=== PATIENT | female | born 1995 | race Caucasian/White ===

== ENCOUNTER → 2021-12-20 | Outpatient (CLI) | payer BC ==
[2021-12-20 10:25] LABS: Basophils # (auto) 0 10 ^3/uL (0-0.2); Basophils % (auto) 0.6 % (0.0-2.0); Eosinophils # (auto) 0 10 ^3/uL (0-0.8); Eosinophils % (auto) 0.6 % (0.0-7.0); Hematocrit 40.9 % (36.0-46.0); Hemoglobin 13.6 g/dL (12.2-16.2); Lymphocytes # (auto) 1.4 10 ^3/uL (0.4-5.4); Mean Corpuscular Hemoglobin 31.6 pg (28.0-32.0); Mean Corpuscular Hgb Conc. 33.1 g/dL (32.0-36.0); Mean Corpuscular Volume 95.5 fL (80.0-100.0); Monocytes # (auto) 0.6 10 ^3/uL (0-1.3); Monocytes % (auto) 7.7 % (0.0-12.0); Neutrophils # (auto) 5.8 10 ^3/uL (1.6-8.6); Neutrophils % (auto) 73.1 % (37.0-80.0); Red Blood Cells 4.28 10^6/uL (4.0-5.20); Red Cell Distribution Width 11.7 % (11.8-14.3)
[2021-12-21 07:06] LABS: RPR Non Reactive (Non Reactive)
== END | disposition home or self-care (01) ==
LOC: LAB 09:23
PROVIDERS: ATTEND Obstetrics & Gynecology
DX: Z34.00 Encounter for supervision of normal first pregnancy, unspecified trimester (principal); N39.0 Urinary tract infection, site not specified; Z31.430 Encounter of female for testing for genetic disease carrier status for procreative management; Z36.0 Encounter for antenatal screening for chromosomal anomalies
CPT/HCPCS: 36415; 83036; 84112; 84702; 85025; 86592; 86703; 86762; 86850; 86900; 86901; 87086; 87340

== ENCOUNTER → 2022-04-19 | Outpatient (CLI) | payer BC ==
[2022-04-19 09:12] LABS: Basophils # (auto) 0 10 ^3/uL (0-0.2); Basophils % (auto) 0.2 % (0.0-2.0); Eosinophils # (auto) 0.1 10 ^3/uL (0-0.8); Eosinophils % (auto) 0.8 % (0.0-7.0); Hematocrit 39.2 % (36.0-46.0); Hemoglobin 13.2 g/dL (12.2-16.2); Lymphocytes # (auto) 1.4 10 ^3/uL (0.4-5.4); Lymphocytes % (auto) 14.6 % (10.0-50.0); Mean Corpuscular Hemoglobin 32.9 pg (28.0-32.0); Mean Corpuscular Hgb Conc. 33.6 g/dL (32.0-36.0); Mean Corpuscular Volume 97.9 fL (80.0-100.0); Monocytes # (auto) 0.7 10 ^3/uL (0-1.3); Monocytes % (auto) 7.7 % (0.0-12.0); Neutrophils # (auto) 7.3 10 ^3/uL (1.6-8.6); Neutrophils % (auto) 76.7 % (37.0-80.0); Nucleated Red Blood Cells % 0.1 %; Red Cell Distribution Width 12.2 % (11.8-14.3); White Blood Cell 9.6 10^3/uL (4.4-10.8)
== END | disposition home or self-care (01) ==
LOC: LAB 07:15
PROVIDERS: ATTEND Obstetrics & Gynecology
DX: O99.810 Abnormal glucose complicating pregnancy (principal); Z3A.00 Weeks of gestation of pregnancy not specified
CPT/HCPCS: 36415; 82951; 85025

== ENCOUNTER → 2022-06-07 | Outpatient (CLI) | payer BC ==
[2022-06-07 08:32] LABS: Basophils # (auto) 0 10 ^3/uL (0-0.2); Basophils % (auto) 0.1 % (0.0-2.0); Eosinophils # (auto) 0 10 ^3/uL (0-0.8); Eosinophils % (auto) 0.4 % (0.0-7.0); Hematocrit 39.4 % (36.0-46.0); Hemoglobin 13.2 g/dL (12.2-16.2); Lymphocytes # (auto) 1.2 10 ^3/uL (0.4-5.4); Lymphocytes % (auto) 10.3 % (10.0-50.0); Mean Corpuscular Hemoglobin 33.2 pg (28.0-32.0); Mean Corpuscular Hgb Conc. 33.6 g/dL (32.0-36.0); Mean Corpuscular Volume 98.6 fL (80.0-100.0); Monocytes # (auto) 0.7 10 ^3/uL (0-1.3); Monocytes % (auto) 6.3 % (0.0-12.0); Neutrophils # (auto) 9.5 10 ^3/uL (1.6-8.6); Neutrophils % (auto) 82.9 % (37.0-80.0); Red Blood Cells 3.99 10^6/uL (4.0-5.20); Red Cell Distribution Width 12.7 % (11.8-14.3); White Blood Cell 11.4 10^3/uL (4.4-10.8)
[2022-06-08 07:06] LABS: RPR Non Reactive (Non Reactive)
== END | disposition home or self-care (01) ==
LOC: LAB 08:22
PROVIDERS: ATTEND Obstetrics & Gynecology
DX: Z34.00 Encounter for supervision of normal first pregnancy, unspecified trimester (principal); Z3A.00 Weeks of gestation of pregnancy not specified
CPT/HCPCS: 36415; 85025; 86592

== ENCOUNTER 2022-07-13 09:37 | Observation (INO) | payer BC ==
[~2022-07-13] VITALS: Ht 157.5 cm; Wt 155.0 kg
[2022-07-13] MEDS ORDERED: PREN-96 PO (14:14)
== END 2022-07-13 14:50 | disposition home or self-care (01) ==
LOC: LDRP 13:10 → UNDOADMOB 13:10 → LDRP 13:11 → UNDOADMOB 13:11 → LDRP 13:39 → UNDODISOB 14:50
PROVIDERS: ADMIT Obstetrics & Gynecology; ATTEND Obstetrics & Gynecology
DX: O62.9 Abnormality of forces of labor, unspecified (principal); Z3A.40 40 weeks gestation of pregnancy
CPT/HCPCS: 59025; 76818; 81002; 94760; G0378

== ENCOUNTER 2022-07-15 10:03 | Observation (INO) | payer BC ==
[~2022-07-15 10:03] MED LIST: PREN-96 PO
== END 2022-07-15 12:42 | disposition home or self-care (01) ==
LOC: LDRP 10:03
PROVIDERS: ADMIT Obstetrics & Gynecology; ATTEND Obstetrics & Gynecology
DX: O48.0 Post-term pregnancy (principal); O62.9 Abnormality of forces of labor, unspecified; Z3A.40 40 weeks gestation of pregnancy
CPT/HCPCS: 59025; 76818; 81002; G0378

== ENCOUNTER 2022-07-17 09:50 | Inpatient (IN) | payer BC ==
[~2022-07-17] VITALS: Ht 157.5 cm; Wt 70.3 kg
[2022-07-17] MEDS ORDERED: DERMOPLAST 60ML BOTTLE TOP PRN (15:45)
[2022-07-17] MEDS ORDERED: PHISODERM TOP SOLN 240ML BTL TOP PRN (15:45)
[2022-07-17] MEDS ORDERED: PROMETHAZINE HCL 25 MG/ML 1ML IV PRN (15:45)
[2022-07-17] MEDS ORDERED: LIDOCAINE 2%HCL (LOCAL ANESTH.) INJ 20ML MDV IJ PRN (15:45)
[2022-07-17] MEDS ORDERED: WITCH HAZEL-GLYCERIN PAD TOP PRN (15:45)
[2022-07-17] MEDS ORDERED: PENICILLIN G POT 5MIL/D5 50ML 50 ML IV ONE (15:45)
[2022-07-17] MEDS ORDERED: BUTORPHANOL TARTRATE 2 MG/1 ML VIAL IV PRN ×2 (15:45)
[2022-07-17] MEDS ORDERED: LACT. RINGERS/OXYTOCIN 20UNITS 500 ML IV ONE ×2 (16:00→16:30)
[2022-07-17 16:31] LABS: Basophils # (auto) 0.1 10 ^3/uL (0-0.2); Basophils % (auto) 0.5 % (0.0-2.0); Eosinophils # (auto) 0 10 ^3/uL (0-0.8); Eosinophils % (auto) 0.3 % (0.0-7.0); Hematocrit 38.5 % (36.0-46.0); Hemoglobin 13.1 g/dL (12.2-16.2); Lymphocytes # (auto) 1.4 10 ^3/uL (0.4-5.4); Lymphocytes % (auto) 13.5 % (10.0-50.0); Mean Corpuscular Hemoglobin 33.7 pg (28.0-32.0); Mean Corpuscular Hgb Conc. 34.1 g/dL (32.0-36.0); Mean Corpuscular Volume 98.9 fL (80.0-100.0); Monocytes # (auto) 0.8 10 ^3/uL (0-1.3); Monocytes % (auto) 7.9 % (0.0-12.0); Neutrophils # (auto) 8.3 10 ^3/uL (1.6-8.6); Neutrophils % (auto) 77.8 % (37.0-80.0); Red Blood Cells 3.89 10^6/uL (4.0-5.20); White Blood Cell 10.7 10^3/uL (4.4-10.8)
[2022-07-17 16:49] LABS: Albumin 2.7 g/dL (3.4-5.0); Calcium 8.9 mg/dL (8.5-10.1); Potassium 3.9 mmol/L (3.5-5.1)
[2022-07-17 16:53] LABS: BUN/Creatinine Ratio 18.8 (10.0-20.0); Bilirubin, Total 0.1 mg/dL (0.2-1.0); Total Protein 6.2 g/dL (6.4-8.2)
[2022-07-17 16:56] LABS: INR 0.9 (0.9-1.15); Partial Thromboplastin Time 29.8 sec (24.6-33.4)
[2022-07-17] MEDS ORDERED: CARBOPROST TROMETHAMINE 250 MCG/1ML VIAL IM PRN (18:15)
[2022-07-17] MEDS ORDERED: METHYLERGONOVINE MALEATE 0.2 MG/ML AMP IM PRN (18:15)
[2022-07-17] MEDS ORDERED: miSOPROStol 100 mcg TAB SL PRN (18:15)
[2022-07-17] MEDS ORDERED: PENICILLIN G POTASSIUM 2,500,000 UNITS in D5W 5% 50 ML IV SCH (19:45)
[2022-07-17 20:27] LABS: Alcohol, Urine < 3.0 mg/dL (0-10); Amphetamine Screen, Urine NEGATIVE (NEGATIVE); Barbiturate Scree,Urine NEGATIVE (NEGATIVE); Benzodiazephine Screen, Urine NEGATIVE (NEGATIVE); Cannabinoid Screen, Urine NEGATIVE (NEGATIVE); Cocaine Screen, Urine NEGATIVE (NEGATIVE); Opiate Scree,Urine NEGATIVE (NEGATIVE); Phencyclidine Screen, Urine NEGATIVE (NEGATIVE)
[2022-07-17 20:32] LABS: Urine Bacteria FEW /hpf (None Seen); Urine Blood Negative /uL (Negative); Urine Specific Gravity 1.004 (1.001-1.035); Urine WBC 1 /hpf (0 - 5)
[2022-07-17] MEDS: PENICILLIN G POTASSIUM 2,500,000 UNITS in D5W 5% 50 ML IV SCH (21:45)
[2022-07-17] MEDS ORDERED: DIPHENOXYLATE W/ATROPINE 2.5 MG TAB PO SCH (22:00)
[2022-07-18] MEDS: LACTATED RINGER'S 1,000 ML IV SCH ×2 (02:14→16:53)
[2022-07-18] MEDS: PENICILLIN G POTASSIUM 2,500,000 UNITS in D5W 5% 50 ML IV SCH ×5 (02:18→19:26)
[2022-07-18] MEDS ORDERED: miSOPROStol 50 MCG per PRE-CUT 1/2 TAB PO PRN (02:42)
[2022-07-18] MEDS ORDERED: TERBUTALINE SULFATE 1 MG/ML 1ML VIAL SC ONE (04:30)
[2022-07-18] MEDS ORDERED: LACT. RINGERS/OXYTOCIN 20UNITS 500 ML IV ONE ×2 (08:00→08:30)
[2022-07-18] MEDS ORDERED: LACT. RINGERS/OXYTOCIN 20UNITS 1,000 ML IV SCH (08:00)
[2022-07-18 09:07] LABS: RPR Non Reactive (Non Reactive)
[2022-07-18] MEDS ORDERED: LACTATED RINGER'S 1,000 ML IV ONE (16:00)
[2022-07-18] MEDS ORDERED: ePHEDrine SULFATE 50 MG/ML AMP IV ONE (16:00)
[2022-07-18] MEDS ORDERED: ROPIVACAINE HCL 200 ML EPI SCH (16:00)
[2022-07-18] MEDS ORDERED: fentaNYL CITRATE 100 MCG/2 ML VL IV ONE (16:00)
[2022-07-18] MEDS ORDERED: NALOXONE HCL 0.4 MG/ML VIAL IV ONE (16:00)
[2022-07-18] MEDS ORDERED: ROPIVACAINE HCL 200 ML ONE (16:04)
[2022-07-18] MEDS ORDERED: fentaNYL CITRATE 100 MCG/2 ML VL ONE (16:04)
[2022-07-18] MEDS ORDERED: Lidocaine W-Epinephrine 1.5%-1:200,000 INJ 10ml Vial ONE (16:10)
[2022-07-18] MEDS ORDERED: FAMOTIDINE (10MG/ML) 2ML VL IV ONE (17:07)
[2022-07-18] MEDS ORDERED: FAMOTIDINE (10MG/ML) 2ML VL IV PRN (17:15)
[2022-07-18] MEDS ORDERED: OXYTOCIN 10UNIT/ML 1ML VIAL IM ONE (22:30)
[2022-07-18] MEDS ORDERED: OXYTOCIN 10UNIT/ML 1ML VIAL ONE (22:32)
[2022-07-19] MEDS ORDERED: ACETAMINOPHEN 325 MG TAB PO PRN (00:15)
[2022-07-19] MEDS ORDERED: CARBOPROST TROMETHAMINE 250 MCG/1ML VIAL IM PRN (00:15)
[2022-07-19 01:31] LABS: Basophils # (auto) 0.1 10 ^3/uL (0-0.2); Eosinophils # (auto) 0 10 ^3/uL (0-0.8); Hematocrit 36.2 % (36.0-46.0); Lymphocytes # (auto) 0.9 10 ^3/uL (0.4-5.4)
[2022-07-19 01:33] LABS: Basophils % (auto) 0.5 % (0.0-2.0); Hemoglobin 12.6 g/dL (12.2-16.2); Lymphocytes % (auto) 4.8 % (10.0-50.0); Mean Corpuscular Hemoglobin 33.9 pg (28.0-32.0); Mean Corpuscular Hgb Conc. 34.8 g/dL (32.0-36.0); Mean Corpuscular Volume 97.5 fL (80.0-100.0); Monocytes # (auto) 1.2 10 ^3/uL (0-1.3); Monocytes % (auto) 6.3 % (0.0-12.0); Neutrophils # (auto) 16.4 10 ^3/uL (1.6-8.6); Neutrophils % (auto) 88.4 % (37.0-80.0); Red Blood Cells 3.72 10^6/uL (4.0-5.20); White Blood Cell 18.5 10^3/uL (4.4-10.8)
[2022-07-19] MEDS: IBUPROFEN 600 MG TAB PO PRN ×3 (03:27→23:15)
[2022-07-19] MEDS: LACTATED RINGER'S 1,000 ML IV SCH (05:22)
[2022-07-19 07:00] VITALS: BP 117/76
[2022-07-19] MEDS ORDERED: TERBUTALINE SULFATE 1 MG/ML 1ML VIAL SC PRN (07:30)
[2022-07-19] MEDS ORDERED: LACT. RINGERS/OXYTOCIN 20UNITS 500 ML IV ONE ×2 (07:30→08:00)
[2022-07-19] MEDS ORDERED: LACT. RINGERS/OXYTOCIN 20UNITS 1,000 ML IV SCH (07:30)
[2022-07-19 11:00] VITALS: BP 100/65
[2022-07-19] MEDS ORDERED: PREN-96 PO (14:23)
[2022-07-19] MEDS ORDERED: HYDR-4902 PO (14:23)
[2022-07-19] MEDS ORDERED: IBU600T PO (14:23)
[2022-07-19] MEDS ORDERED: DOCU-94 PO (14:23)
[2022-07-19] MEDS ORDERED: ACET325T10 PO (14:23)
[2022-07-19] MEDS ORDERED: DOCUSATE SOD 100 MG CAP PO PRN (14:30)
[2022-07-19 14:55] VITALS: BP 115/73
[2022-07-19 18:56] VITALS: BP 104/69
[2022-07-19 23:09] VITALS: BP 110/73
[2022-07-19 23:39] LABS: Basophils # (auto) 0 10 ^3/uL (0-0.2); Lymphocytes # (auto) 1.3 10 ^3/uL (0.4-5.4); Monocytes # (auto) 0.9 10 ^3/uL (0-1.3); Nucleated Red Blood Cells % 0.1 %
[2022-07-19 23:40] LABS: Basophils % (auto) 0.3 % (0.0-2.0); Eosinophils # (auto) 0.1 10 ^3/uL (0-0.8); Eosinophils % (auto) 0.7 % (0.0-7.0); Hematocrit 34.3 % (36.0-46.0); Hemoglobin 11.9 g/dL (12.2-16.2); Lymphocytes % (auto) 12.5 % (10.0-50.0); Mean Corpuscular Hemoglobin 34.7 pg (28.0-32.0); Mean Corpuscular Hgb Conc. 34.8 g/dL (32.0-36.0); Mean Corpuscular Volume 99.8 fL (80.0-100.0); Monocytes % (auto) 8.9 % (0.0-12.0); Neutrophils # (auto) 7.9 10 ^3/uL (1.6-8.6); Neutrophils % (auto) 77.6 % (37.0-80.0); Red Blood Cells 3.44 10^6/uL (4.0-5.20); White Blood Cell 10.1 10^3/uL (4.4-10.8)
[2022-07-20 02:45] VITALS: BP 96/65
[2022-07-20 07:00] VITALS: BP 100/63
[2022-07-20] MEDS: IBUPROFEN 600 MG TAB PO PRN (07:29)
[2022-07-20 11:20] VITALS: BP 117/66
[2022-07-20 12:12] VITALS: BP 117/66
== END 2022-07-20 12:12 | disposition home or self-care (01) | DRG 807 ==
LOC: LDRP 14:09 → UNDOADMOB 14:09 → OBSVTOIN 15:40 → INTOOBSV 15:40 → LDRP 15:47 → OBSVTOIN 15:47 → LDRP 07-19 11:03
PROVIDERS: ADMIT Obstetrics & Gynecology; ATTEND Obstetrics & Gynecology
PROC: 10E0XZZ Delivery of Products of Conception, External Approach (ICD-10-PCS; principal; 2022-07-18)
PROC: 0HQ9XZZ Repair Perineum Skin, External Approach (ICD-10-PCS; 2022-07-18)
PROC: 3E0R3BZ Introduction of Anesthetic Agent into Spinal Canal, Percutaneous Approach (ICD-10-PCS; 2022-07-18)
PROC: 00HU33Z Insertion of Infusion Device into Spinal Canal, Percutaneous Approach (ICD-10-PCS; 2022-07-18)
DX: O48.0 Post-term pregnancy (principal); Z37.0 Single live birth; O99.824 Streptococcus B carrier state complicating childbirth; Z20.822 Contact with and (suspected) exposure to COVID-19; O69.81X0 Labor and delivery complicated by cord around neck, without compression, not applicable or unspecified; O70.0 First degree perineal laceration during delivery; Z3A.40 40 weeks gestation of pregnancy
CPT/HCPCS: 36415; 59025; 59409; 62282; 80053; 80307; 81001; 81002; 84112; 85025; 85610; 85730; 86592; 86850; 86900; 86901; 87426; 94760; 94762; 96360; 96361; 96365; 96366; 96372; G0378; J2540; J2590; J3490; J7060

== ENCOUNTER → 2024-01-24 | Outpatient (CLI) | payer BC ==
[~2024-01-24] MED LIST changes: +ACET-1882 PO; +DOCU-94 PO; +IBU600T PO
[2024-01-24 09:40] LABS: Basophils # (auto) 0 10 ^3/uL (0-0.2); Basophils % (auto) 0.2 % (0.0-2.0); Eosinophils # (auto) 0 10 ^3/uL (0-0.8); Eosinophils % (auto) 0.3 % (0.0-7.0); Hemoglobin 14.1 g/dL (12.2-16.2); Lymphocytes # (auto) 1.5 10 ^3/uL (0.4-5.4); Lymphocytes % (auto) 21.7 % (10.0-50.0); Mean Corpuscular Hemoglobin 33.3 pg (28.0-32.0); Mean Corpuscular Hgb Conc. 35.2 g/dL (32.0-36.0); Mean Corpuscular Volume 94.6 fL (80.0-100.0); Monocytes # (auto) 0.5 10 ^3/uL (0-1.3); Monocytes % (auto) 7.9 % (0.0-12.0); Neutrophils # (auto) 4.8 10 ^3/uL (1.6-8.6); Neutrophils % (auto) 69.9 % (37.0-80.0); Platelet Count (auto) 216 10^3/uL (140-450); Red Blood Cells 4.23 10^6/uL (4.0-5.20); Red Cell Distribution Width 12.6 % (11.8-14.3); White Blood Cell 6.8 10^3/uL (4.4-10.8)
[2024-01-24 10:12] LABS: Amphetamine Screen, Urine Neg (NEGATIVE); Barbiturate Scree,Urine Neg (NEGATIVE); Benzodiazephine Screen, Urine Neg (NEGATIVE); Cocaine Screen, Urine Neg (NEGATIVE); Opiate Scree,Urine Neg (NEGATIVE)
[2024-01-24 10:13] LABS: Cannabinoid Screen, Urine Neg (NEGATIVE); Phencyclidine Screen, Urine Neg (NEGATIVE)
[2024-01-25 08:06] LABS: RPR Non Reactive (Non Reactive)
[2024-01-26 01:06] LABS: Chlamydia Trachomatis, NAA Negative (Negative); Neisseria gonorrhoeae, NAA Negative (Negative)
== END | disposition home or self-care (01) ==
LOC: LAB 08:52
PROVIDERS: ATTEND Obstetrics & Gynecology
DX: Z34.82 Encounter for supervision of other normal pregnancy, second trimester (principal); Z72.51 High risk heterosexual behavior
CPT/HCPCS: 36415; 80307; 83036; 84144; 84702; 85025; 86592; 86703; 86762; 86850; 86900; 86901; 87086; 87340

== ENCOUNTER 2024-08-30 12:40 | Observation (INO) | payer BC ==
--- NOTE | 2024-08-30 15:11 | DVH ---
CLINICAL HISTORY: term . COMPARISON: Ultrasound dated 06/04/2024. TECHNIQUE: biophysical profile was performed. Transabdominal sonographic images of the fetus we re obtained. FINDINGS: The fetus is in cephalic position. heart rate measures 148 BPM. Amniotic fluid index measures 18.7 cm. The placenta is anterior in position. BPP profile is an overall score of 8/8, with 2/2 points for breathing, with at least one episode of breathing over a 30 second duration during a 30 minute observation, 2/2 points for m ovements, with 3 or more discrete body or limb movements, 2/2 points for tone, with one or more episodes of extremity extension with return to flexion, or opening and closing of hand, and 2/ 2 points for amniotic fluid, with at least 1 pocket of amniotic fluid that measures 2 cm in 2 perpend icular planes. IMPRESSION: BPP score of 8/8.
--- NOTE | 2024-08-30 18:32 | DVHDS2 ---
Discharge Summary Date of Admission August 30, 2024 at 14:14 Date of Discharge: August 30, 2024 Admitting Diagnosis Forty intrauterine weeks reassuring heart tones and ultrasound Brief Hx & Hospital Course: Ultrasound NST reassuring Condition at Discharge: Good Final Diagnosis/Problems List 40 weeks reassuring heart tones in off Discharge Disposition: Home Discharge Instruct/Medications Diet: Regular Activity: No Restrictions, As Tolerated Activity comment: Kick counts labor precautions Discharge Statement: "Patient was advised to return to the ER or call 911 if any headaches, dizziness, shortness of breath, chest pain, abdominal pain, bleeding, fevers, or worsening of medical condition. Patient was counseled about treatment plan, medications, possible side effects, patientverbalized understanding. All questions were answered to the best of my ability. This discharge took greater then 30 minutes in planning, reviewing documentation, counseling the patient, and discussing with other team members." ASSESSMENT ASSESSMENT Assessment Visit Coding OBGYN Date of Service: August 30, 2024 Billing Provider: TAHIRA OLIVERA DO HEALTH EDUCATOR Common Visit Codes: [id number] INP/OBS CARE(HIGH), 32422-KAM/OBS SAME DATE (LOW), 70197-QCS/OBS SAME DATE (MOD), 31908-KDF/OBS SAME DATE (HIGH) HEALTH EDUCATOR Procedure Codes: 44436-43- NON-STRESS TEST TAHIRA OLIVERA DO August 30, 2024 18:32
== END 2024-08-30 15:31 | disposition home or self-care (01) ==
LOC: LDRP 14:14
PROVIDERS: ADMIT Obstetrics & Gynecology; ATTEND Obstetrics & Gynecology
DX: O48.0 Post-term pregnancy (principal); Z98.890 Other specified postprocedural states; Z79.899 Other long term (current) drug therapy; Z3A.40 40 weeks gestation of pregnancy
CPT/HCPCS: 76818; 81002; 94760; G0378; 76819

== ENCOUNTER 2024-09-01 17:07 | Observation (INO) | payer BC ==
--- NOTE | 2024-09-01 18:01 | DVH ---
BIOPHYSICAL PROFILE HISTORY: POST DATES Comparison Study: US BIOPHYSICAL PROFILE on DOS: 08/30/24, US BIOPHYSICAL PROFILE on DOS: 07/15/22, US B IOPHYSICAL PROFILE on DOS: 07/13/22 TECHNIQUE: Multiple real-time grayscale sonographic images through the gravid uterus of the fetus wi th duplex Doppler color flow and M-mode spectral analysis FINDINGS: BIOPHYSICAL PROFILE: breathing score: 2 movement score: 2 tone score: 2 Quantitative EMIR score: 2 (EMIR: 21 Cm.) Total score: 8 Single live fetus in cephalic presentation. heart rate 152 beats per minute. Anterior placenta without previa or abruption Limited studies transvaginal ultrasound not performed Biophysical profile score 8/8 corresponding to an RAMOS of 08/30/24 IMPRESSION: 1. Biophysical profile score: 8/8
--- NOTE | 2024-09-02 02:40 | DVHDS2 ---
Discharge Summary Date of Admission September 01, 2024 at 17:07 Date of Discharge: September 01, 2024 Admitting Diagnosis 40+ wks for NST US Brief Hx & Hospital Course: NST US reassuring Condition at Discharge: Good Final Diagnosis/Problems List 40+ wks iup Discharge Disposition: Home Discharge Instruct/Medications Diet: Regular Activity: No Restrictions, As Tolerated Activity comment: kick counts labor precautions Follow Up/Referral: as scheduled Discharge Statement: "Patient was advised to return to the ER or call 911 if any headaches, dizziness, shortness of breath, chest pain, abdominal pain, bleeding, fevers, or worsening of medical condition. Patient was counseled about treatment plan, medications, possible side effects, patientverbalized understanding. All questions were answered to the best of my ability. This discharge took greater then 30 minutes in planning, reviewing documentation, counseling the patient, and discussing with other team members." ASSESSMENT ASSESSMENT Assessment Visit Coding OBGYN Date of Service: September 01, 2024 Billing Provider: TAHIRA OLIVERA DO TRIAGE RN Common Visit Codes: 07517-TUL/OBS SAME DATE (LOW), 85265-HVC/OBS SAME DATE (MOD), 58152-TWC/OBS SAME DATE (HIGH) TRIAGE RN Procedure Codes: 25797-40- NON-STRESS TEST TAHIRA OLIVERA DO September 02, 2024 02:40
[2024-09-02] MEDS ORDERED: PREN-96 PO (21:41)
== END 2024-09-01 18:27 | disposition home or self-care (01) ==
LOC: LDRP 17:07
PROVIDERS: ADMIT Obstetrics & Gynecology; ATTEND Obstetrics & Gynecology
DX: O48.0 Post-term pregnancy (principal); Z98.890 Other specified postprocedural states; Z79.899 Other long term (current) drug therapy; Z3A.40 40 weeks gestation of pregnancy
CPT/HCPCS: 76818; 81002; 94760; G0378; 59025; 76819

== ENCOUNTER 2024-09-02 04:28 | Inpatient (IN) | payer BC ==
[~2024-09-02] VITALS: Ht 162.6 cm; Wt 72.6 kg
[2024-09-02] MEDS ORDERED: CARBOPROST TROMETHAMINE 250 MCG/1ML VIAL IM PRN (04:45)
[2024-09-02] MEDS ORDERED: ONDANSETRON HCL 4 MG/2 ML VIAL IV PRN ×3 (04:45→08:15)
[2024-09-02] MEDS ORDERED: ACETAMINOPHEN 325 MG TAB PO PRN ×2 (04:45→06:30)
[2024-09-02] MEDS ORDERED: LIDOCAINE 2%HCL (LOCAL ANESTH.) INJ 20ML MDV IJ PRN (04:45)
[2024-09-02] MEDS ORDERED: miSOPROStol 100 mcg TAB SL PRN (04:45)
[2024-09-02] MEDS ORDERED: METHYLERGONOVINE MALEATE 0.2 MG/ML AMP IM PRN (04:45)
[2024-09-02] MEDS ORDERED: miSOPROStol 100 mcg TAB PR PRN (04:45)
[2024-09-02 05:12] LABS: Urine Bacteria None Seen /hpf (None Seen)
[2024-09-02 05:14] LABS: Basophils # (auto) 0.1 10 ^3/uL (0-0.2); Basophils % (auto) 0.7 % (0.0-2.0); Eosinophils # (auto) 0.1 10 ^3/uL (0-0.8); Eosinophils % (auto) 0.6 % (0.0-7.0); Lymphocytes # (auto) 1.9 10 ^3/uL (0.4-5.4); Lymphocytes % (auto) 20.5 % (10.0-50.0); Mean Corpuscular Hemoglobin 32.7 pg (28.0-32.0); Mean Corpuscular Hgb Conc. 34.2 g/dL (32.0-36.0); Mean Corpuscular Volume 95.6 fL (80.0-100.0); Monocytes # (auto) 0.9 10 ^3/uL (0-1.3); Neutrophils # (auto) 6.5 10 ^3/uL (1.6-8.6); Neutrophils % (auto) 68.2 % (37.0-80.0); Nucleated Red Blood Cells % 0.1 %; Platelet Count (auto) 179 10^3/uL (140-450); Red Blood Cells 4.29 10^6/uL (4.0-5.20); Red Cell Distribution Width 12.6 % (11.8-14.3); White Blood Cell 9.5 10^3/uL (4.4-10.8)
[2024-09-02 05:19] LABS: Urine Blood Negative /uL (Negative); Urine Clarity Clear (Clear); Urine Color Colorless (Yellow); Urine Protein, UAD Negative (Negative); Urine Specific Gravity 1.007 (1.001-1.035); Urine Squamous Epithelial Cell FEW /hpf (<5); Urine Urobilinogen Normal (Negative); Urine WBC 2 /HPF (0-5)
[2024-09-02 05:28] LABS: INR 0.95 (0.9-1.15); Partial Thromboplastin Time 26.8 SEC (24.5-34.5); Prothrombin Time 10.1 sec (9.3-11.8)
[2024-09-02 05:32] LABS: Alanine Aminotransferase 16 U/L (7-40); Albumin 4.1 g/dL (3.2-4.8); Anion Gap 12 (5-15); Aspartate Aminotransferase 15 U/L (13-40); BUN/Creatinine Ratio 16.7 (10.0-20.0); Blood Urea Nitrogen 10 mg/dL (9-23); Calcium 9.6 mg/dL (8.7-10.4); Glucose 96 mg/dL (74-106); Potassium 3.8 mmol/L (3.5-5.1); Sodium 138 mmol/L (136-145); Total Protein 6.4 g/dL (5.7-8.2)
[2024-09-02 05:33] LABS: Bilirubin, Total 0.4 mg/dL (0.2-1.0)
[2024-09-02 05:37] LABS: Alkaline Phosphatase 212 U/L (46-116); Carbon Dioxide 19 mmol/L (20-31); Chloride 107 mmol/L (98-107)
[2024-09-02 05:50] LABS: Amphetamine Screen, Urine Neg (NEGATIVE); Barbiturate Scree,Urine Neg (NEGATIVE); Benzodiazephine Screen, Urine Neg (NEGATIVE); Cannabinoid Screen, Urine Neg (NEGATIVE); Cocaine Screen, Urine Neg (NEGATIVE); Opiate Scree,Urine Neg (NEGATIVE); Phencyclidine Screen, Urine Neg (NEGATIVE)
--- NOTE | 2024-09-02 06:26 | DVHHP2 ---
OB CC & HPI Date Date of Admission: September 02, 2024 Patient Identification: : 2 Para: 1 EDC: August 30, 2024 EGA: 40+ Chief Complaints: Reason for admission: active labor Admission Nurse Assessment Rev: Yes Past Medical History Cardiac: No pertinent Hx Pulmonary: No pertinent Hx Central Nervous System: No pertinent Hx GI: No pertinent Hx Hemotology/Oncology: No pertinent Hx Hepatobiliary: No pertinent Hx Psychiatric: No pertinent Hx Musculoskeletal: No pertinent Hx Rheumotologic: No pertinent Hx Infectious Disease: No peritnent Hx ENT: No pertinent Hx Renal/: No pertinent Hx Endocrine: No pertinent Hx Dermatology: No pertinent Hx OB History OB History Care: Good Care Obstetrical Complications: None Medical Complications: None Allergies: Coded Allergies: NO KNOWN ALLERGIES (Unverified , 07/13/22) Home Meds Active Scripts Docusate Sodium (Colace) 100 Mg Cap, 1 CAP PO DAILY PRN for 30 Days, #30 CAP Prov:JUAN RODAS CN 07/19/22 Acetaminophen (Acetaminophen) 325 Mg Tab, 650 MG PO Q6HPRN PRN for 10 Days, #80 TAB Prov:JUAN RDOAS CN 07/19/22 Ibuprofen Micronized (MOTRIN TABLET) 600 Mg Tb, 600 MG PO Q6HP PRN for 15 Days, #60 TAB Prov:JUAN RODAS CN 07/19/22 Vit W/ Ferrous Fumara ( One Daily) Daily Tab, 1 TAB PO DAILY, #90 TAB 3 Refills Prov:JUAN RODAS CN 07/19/22 Current Medications Current Medications Medications (Trade) Dose Ordered Sig/Morteza Route PRN Reason Start Time Stop Time Status Last Admin Lactated Ringer's 1,000 ml @ 125 mls/hr Q8H IV 09/02/24 04:45 Witch Charis (Tucks) 1 pad PRN PRN TOP PERINEAL AREA DISCOMFORT 09/02/24 04:45 Sodium Lauryl Sulfate (Phisoderm) 240 ml PRN PRN TOP PERINEAL AREA DISCOMFORT 09/02/24 04:45 Benzocaine (Dermoplast) 1 applic PRN PRN TOP PERINEAL AREA DISCOMFORT 09/02/24 04:45 Lidocaine HCl (Xylocaine) 20 ml ONCE PRN IJ PERINEAL AREA DISCOMFORT 09/02/24 04:45 Ondansetron HCl (Zofran) 4 mg Q4HP PRN IV NAUSEA / VOMITING 09/02/24 04:45 Carboprost Tromethamine (Hemabate) 250 mcg Q20M PRN IM POST HEMORRHAGE 09/02/24 04:45 09/02/24 05:26 DC Methylergonovine Maleate (Methergine) 0.2 mg Q8HP PRN IM POST HEMORRHAGE 09/02/24 04:45 09/04/24 04:44 Misoprostol (Cytotec) 200 mcg ONCE PRN SL BLEED/HEMORRHAGE 09/02/24 04:45 Misoprostol (Cytotec) 600 mcg ONCE PRN ID BLEED/HEMORRHAGE 09/02/24 04:45 Acetaminophen (Tylenol Tablet) 650 mg Q4HP PRN PO TEMP GREATER THAN 100.4 09/02/24 04:45 Diphenoxylate HCl/ Atropine (Lomotil Tablet) 10 mg Q12HR PO 09/02/24 10:00 Family & Social History Family/Social History Blood Type: A+ Rubella: immune RPR/VDRL: Negative GBS Status: Negative HBsAG: Negative Review of Systems Constitutional: No symptom reported Ears, Nose, & Throat: No symptom reported Eyes: No symptom reported Pulmonary/Respiratory: No symptom reported Cardiovascular: No symptom reported Gastrointestinal: No symptom reported Genitourinary: No symptom reported Musculoskeletal: No symptom reported Skin: No symptom reported Psychiatric: No symptom reported Endocrine: No symptom reported Hemotologic/Lymphatic: No symptom reported OB Admission Exam Physical Exam Heart: Rhythm Normal Lungs: Clear Abdomen: Gravid Extremities: Normal Cervical Dilatation: 6cm Effacement: 100% Station: -1 Membranes: Intact Heart Rate: 140's Accelerations: Accelerations Present Short Term Variability: Present Sustainability Engineer Variability: Average (6-25) Contractions on Admission: < 5 Minutes Apart Intensity: Moderate OB Plan Plan Admitting Diagnosis: Labor post dates Plan: Expectant Management Visit Coding OBGYN Date of Service: September 02, 2024 Billing Provider: TAHIRA OLIVERA DO LUMBER GRADER Common Visit Codes: 78597-QAV/OBS SAME DATE (HIGH) LUMBER GRADER Procedure Codes: 96716-WSR DEL INCLUDING TAHIRA OLIVERA DO September 02, 2024 06:26
--- NOTE | 2024-09-02 06:29 | LDN2 ---
Labor and Delivery Note Date 09/02/24 Age 29 2 Para 1 AB 0 EDC 08/30/2024 EGA 40+ Diagnosis labor Vaginal Delivery: VTX Vacuum Assisted: No Placenta: Spontaneous Sex: Male Weight pnd Apgars pnd Amniotic Fluid: Clear Anesthesia none Repaired with n/a EBL 200cc Labs Laboratory Tests 01/24/24 09:09: Hepatitis B Surface Antigen Negative, HIV (1&2) Antibody Negative, Rubella Antibody Positive Blood Bank 09/02/24 05:01: Blood Type A POSITIVE Complications none Conditions stable guarded Assurance Specialist non present Visit Coding OBGYN Date of Service: September 02, 2024 Billing Provider: TAHIRA OLIVERA DO TABLE GAMES SHIFT MANAGER Common Visit Codes: 24985-VAW/OBS SAME DATE (HIGH) TABLE GAMES SHIFT MANAGER Procedure Codes: 25020-OUH DEL INCLUDING TAHIRA OLIVERA DO September 02, 2024 06:29
[2024-09-02] MEDS ORDERED: ONDANSETRON ODT 4 MG TAB PO PRN (06:30)
[2024-09-02] MEDS: WITCH HAZEL-GLYCERIN PAD TOP PRN (06:58)
[2024-09-02] MEDS: PHISODERM TOP SOLN 240ML BTL TOP PRN (06:58)
[2024-09-02] MEDS: DERMOPLAST 60ML BOTTLE TOP PRN (06:59)
[2024-09-02] MEDS: LACT. RINGERS/OXYTOCIN 20UNITS 500 ML IV ONE ×2 (07:17→07:18)
[2024-09-02] MEDS: LACTATED RINGER'S 1,000 ML IV SCH (07:53)
[2024-09-02] MEDS ORDERED: DIPHENOXYLATE W/ATROPINE 2.5 MG TAB PO SCH (10:00)
[2024-09-02 10:47] VITALS: BP 122/82; PULSE 81; RESP 14; TEMP 98.2; O2SAT 97
[2024-09-02] MEDS: IBUPROFEN 600 MG TAB PO PRN (11:23)
[2024-09-02] MEDS ORDERED: IBUPROFEN 800 MG TAB PO SCH (12:00)
[2024-09-02 14:47] VITALS: BP 101/67; PULSE 96; RESP 16; TEMP 98.2; O2SAT 97
[2024-09-02 19:00] VITALS: BP 123/69; PULSE 89; RESP 17; TEMP 98.5; O2SAT 98
[2024-09-02] MEDS: DOCUSATE SOD 100 MG CAP PO SCH (21:21)
[2024-09-02] MEDS ORDERED: IBU600T PO (21:41)
[2024-09-02] MEDS ORDERED: PREN-96 PO (21:41)
[2024-09-02] MEDS ORDERED: DOCU-94 PO (21:41)
[2024-09-02 23:00] VITALS: BP 106/68; PULSE 88; RESP 16; TEMP 98.1; O2SAT 97
--- NOTE | 2024-09-03 00:06 | DVHPN2 ---
Progress Note Date Seen: September 03, 2024 Subjective S: bleeding is less, eating food without issues, denies lightheaded/dizziness, pain well controlled with oral medications, no concerns with urinating, passing flatus, no BM yet, ambulating well, vital signs Vital Sign Date Time Temp Pulse Resp B/P (MAP) Pulse Ox O2 Delivery O2 Flow Rate FiO2 09/02/24 23:00 98.1 88 16 106/68 (81) 97 98.1 09/02/24 19:00 Room Air Total Intake and Output 09/02/24 09/02/24 09/03/24 15:00 23:00 07:00 Output Total 1500 ml Balance -1500 ml medications Current Medications Medications Dose Ordered Sig/Morteza Route Start Time Stop Time Status Last Admin Dose Admin Lactated Ringer's 1,000 ml @ 125 mls/hr Q8H IV 09/02/24 04:45 09/02/24 07:53 125 MLS/HR Lyndsay Vizcaino 1 pad PRN PRN TOP 09/02/24 04:45 09/02/24 06:58 1 PAD Sodium Lauryl Sulfate 240 ml PRN PRN TOP 09/02/24 04:45 09/02/24 06:58 240 ML Benzocaine 1 applic PRN PRN TOP 09/02/24 04:45 09/02/24 06:59 1 APPLIC Lidocaine HCl 20 ml ONCE PRN IJ 09/02/24 04:45 Methylergonovine Maleate 0.2 mg Q8HP PRN IM 09/02/24 04:45 09/04/24 04:44 Misoprostol 200 mcg ONCE PRN SL 09/02/24 04:45 Misoprostol 600 mcg ONCE PRN AK 09/02/24 04:45 Ibuprofen 600 mg Q6HP PRN PO 09/02/24 06:30 09/02/24 17:31 600 MG Acetaminophen 650 mg Q4HP PRN PO 09/02/24 06:30 Ondansetron HCl 4 mg Q4HPRN PRN PO 09/02/24 06:30 Docusate Sodium 200 mg HS PO 09/02/24 22:00 09/02/24 21:21 200 MG Ondansetron HCl 4 mg Q4HP PRN IV 09/02/24 08:15 laboratory and microbiology Laboratory Tests 09/02/24 05:01 Test 09/02/24 05:01 Range/Units Serum Glucose 96 74-106 mg/dL Objective O: VSS Chest: heart sounds normal and lung sounds clear bilaterally Abd: soft, non-tender, fundus 1 below U/firm/midline, active bowel sounds, no rebound or guarding Perineum: intact, no erythema/edema noted Ext: Non-tender, No edema, 2+ BLE DTRs Lochia: minimal See lab results Problems(with codes): (1) (normal spontaneous vaginal delivery) (2) Intact perineum Assessment/Plan A: 29yo now PPD#1 s/p Rh+ Rubella Immune P: D/C home today Rx sent to pharmacy precautions and preeclampsia warning signs reviewed F/U with [facility] office in 2 weeks Plan discussed with: Patient, Spouse Visit Coding OBGYN Date of Service: September 03, 2024 Billing Provider: JUAN RODAS CNM LABORATORY ANIMAL CARE VETERINARIAN Common Visit Codes: [id number] INP/OBS CARE(MOD) JUAN RODAS CNM September 03, 2024 00:06
--- NOTE | 2024-09-03 00:06 | DVHDS2 ---
Obstetrics Discharge Summary Obstetrics Discharge Summary Date of Admission: September 02, 2024 Date of Discharge: September 03, 2024 Reason For Admission: Onset of Labor Procedures: NST Intrapartum Procedures: Spontaneous vaginal deliv Procedures: Hct/date: (09/03/24), Hgb/date: (09/03/24) Operative Complicat: None Discharge Diagnosis: Term -Delivered Discharge Information: Activity (as tolerated, no heavy lifting and nothing in the vagina for 6 weeks), Diet (Routine), Medications (Rx sent), Instructions (Routine), Discharge to (Home), Accompanied by (partner), Discarge date (09/03/24) Visit Coding OBGYN Date of Service: September 03, 2024 Billing Provider: JUAN RODAS CNM UNDERWRITING CLERKS SUPERVISOR Common Visit Codes: 69032-MUA/OBS DISCH DAY <30MIN JUAN RODAS CNM September 03, 2024 00:06
[2024-09-03 03:00] VITALS: BP 102/61; PULSE 84; RESP 17; TEMP 98.2; O2SAT 97
[2024-09-03 07:00] VITALS: BP 118/73; PULSE 85; RESP 16; TEMP 97.7; O2SAT 96
[2024-09-03 09:09] LABS: Basophils # (auto) 0 10 ^3/uL (0-0.2); Basophils % (auto) 0.3 % (0.0-2.0); Eosinophils # (auto) 0 10 ^3/uL (0-0.8); Eosinophils % (auto) 0.3 % (0.0-7.0); Hematocrit 38.3 % (36.0-46.0); Lymphocytes # (auto) 1.5 10 ^3/uL (0.4-5.4); Lymphocytes % (auto) 15.8 % (10.0-50.0); Mean Corpuscular Hemoglobin 32.7 pg (28.0-32.0); Mean Corpuscular Volume 96.1 fL (80.0-100.0); Monocytes # (auto) 0.6 10 ^3/uL (0-1.3); Monocytes % (auto) 6.2 % (0.0-12.0); Neutrophils # (auto) 7.2 10 ^3/uL (1.6-8.6); Neutrophils % (auto) 77.4 % (37.0-80.0); Platelet Count (auto) 156 10^3/uL (140-450); Red Blood Cells 3.98 10^6/uL (4.0-5.20); White Blood Cell 9.3 10^3/uL (4.4-10.8)
== END 2024-09-03 10:10 | disposition home or self-care (01) | DRG 807 ==
LOC: LDRP 04:28 → OBSVTOIN 04:40 → LDRP 04:41
PROVIDERS: ADMIT Obstetrics & Gynecology; ATTEND Obstetrics & Gynecology
PROC: 10E0XZZ Delivery of Products of Conception, External Approach (ICD-10-PCS; principal; 2024-09-02)
DX: O48.0 Post-term pregnancy (principal); Z37.0 Single live birth; Z3A.40 40 weeks gestation of pregnancy
CPT/HCPCS: 36415; 59025; 59409; 80053; 80307; 81001; 81002; 85025; 85610; 85730; 86780; 86803; 86850; 86900; 86901; 94760; 96360; 96361; 96365; 96366; G0378; J2590